=== PATIENT | female | born 1955 | race Caucasian/White ===

== ENCOUNTER → 2017-11-03 10:16 | Outpatient (CLI) | payer MEDICARE, SELFPAY ==
--- NOTE | 2017-11-03 11:09 | XR_ITS ---
XR DEXA axial skeleton COMPARISON: None HISTORY: Patient is postmenopausal TECHNIQUE: DEXA scanning lumbar spine and hips FINDINGS: Lumbar spine: The average BMD L1-L4 is 1.2-3 times per centimeter squared with T score of 0.4 Hips: The total BMD right hip is 0.72 g/sq cm with a T score -1.8 in the right femoral neck is 0.712 g/sq cm the T score of -2.3. The total BMD left hip is 0.839 g or centimeter square the T score -1.3. The left femoral neck is 0.760 g/sq cm the T score -2.0 IMPRESSION: Normal value lumbar spine ,osteopenia range for both hips, consider follow-up study in 2 years
== END ==
PROVIDERS: Family Provider Internal Medicine Adolescent Medicine; PCP Internal Medicine Adolescent Medicine; Visit Provider Internal Medicine Adolescent Medicine
DX: Z13.820 Encounter for screening for osteoporosis (principal); Z78.0 Asymptomatic menopausal state
CPT/HCPCS: 77080

== ENCOUNTER → 2018-03-16 09:17 | Outpatient (CLI) | payer MEDICARE, SELFPAY ==
[2018-03-16 13:52] LABS: Hemoglobin A1C 5.7 % (0.0-7.0)
== END ==
PROVIDERS: PCP Internal Medicine Adolescent Medicine; Visit Provider Internal Medicine Adolescent Medicine
DX: E11.9 Type 2 diabetes mellitus without complications (principal)
CPT/HCPCS: 36415; 83036

== ENCOUNTER → 2018-06-19 09:48 | Outpatient (CLI) | payer MEDICARE, SELFPAY ==
[2018-06-19 13:35] LABS: Hemoglobin A1C 5.6 % (0.0-7.0)
[2018-06-19 13:53] LABS: Alanine Aminotransferase 27 U/L (12-78); Albumin Level 4.1 gm/dL (3.4-5.0); Albumin/Globulin Ratio 1.2 (1.1-1.8); Alkaline Phosphatase 118 U/L (46-116); Anion Gap 18.1 mEq/L (5-15); Aspartate Amino Transferase 14 U/L (15-37); Bilirubin,Total 0.5 mg/dL (0.2-1.0); Blood Urea Nitrogen 9 mg/dL (7-18); Calcium 9.3 mg/dL (8.5-10.1); Carbon Dioxide 23 mmol/L (21.0-32.0); Chloride 104 mmol/L (98-107); Chol/HDL Ratio 3.8 (1-3.5); Cholesterol 134 mg/dL (140-200); Creatinine,Serum 1.24 mg/dL (0.55-1.02); Estimated Glomerular Filt Rate 44 ml/min (>60); GFR (African American) 53 ML/MIN (>60); Globulin 3.3 gm/dl (1.3-3.2); Glucose 93 mg/dL (74-106); HDL Cholesterol 35 mg/dL (29-89); LDL Cholesterol 46 mg/dL (0-130); Potassium 4.1 mmoL/L (3.5-5.1); Sodium 141 mmol/L (136-145); Total Protein,Serum 7.4 gm/dL (6.4-8.2); Triglycerides 264 mg/dL (30-200); VLDL Cholesterol 53 mg/dL (0-40)
== END ==
PROVIDERS: PCP Internal Medicine Adolescent Medicine; Visit Provider Internal Medicine Adolescent Medicine
DX: E11.9 Type 2 diabetes mellitus without complications (principal); Z79.84 Long term (current) use of oral hypoglycemic drugs
CPT/HCPCS: 36415; 80053; 80061; 83036

== ENCOUNTER → 2018-09-17 07:04 | Outpatient (CLI) | payer MEDICARE, SELFPAY ==
[2018-09-17 14:33] LABS: Hemoglobin A1C 5.5 % (0.0-7.0)
[2018-09-17 15:53] LABS: Alanine Aminotransferase 26 U/L (12-78); Albumin Level 3.9 gm/dL (3.4-5.0); Albumin/Globulin Ratio 1.3 (1.1-1.8); Alkaline Phosphatase 129 U/L (46-116); Aspartate Amino Transferase 15 U/L (15-37); Bilirubin,Total 0.6 mg/dL (0.2-1.0); Blood Urea Nitrogen 12 mg/dL (7-18); Calcium 9.1 mg/dL (8.5-10.1); Carbon Dioxide 24 mmol/L (21.0-32.0); Chloride 106 mmol/L (98-107); Chol/HDL Ratio 3.1 (1-3.5); Cholesterol 93 mg/dL (140-200); Creatinine,Serum 1.18 mg/dL (0.55-1.02); Estimated Glomerular Filt Rate 46 ml/min (>60); GFR (African American) 56 ML/MIN (>60); Globulin 2.9 gm/dl (1.3-3.2); Glucose 85 mg/dL (74-106); HDL Cholesterol 30 mg/dL (29-89); LDL Cholesterol 22 mg/dL (0-130); Sodium 142 mmol/L (136-145); Total Protein,Serum 6.8 gm/dL (6.4-8.2); Triglycerides 207 mg/dL (30-200); VLDL Cholesterol 41 mg/dL (0-40)
== END ==
PROVIDERS: PCP Internal Medicine Adolescent Medicine; Visit Provider Internal Medicine Adolescent Medicine
DX: E11.9 Type 2 diabetes mellitus without complications (principal); Z79.84 Long term (current) use of oral hypoglycemic drugs
CPT/HCPCS: 36415; 80053; 80061; 83036

== ENCOUNTER → 2019-01-22 09:04 | Outpatient (CLI) | payer MEDICARE, SELFPAY ==
--- NOTE | 2019-01-22 09:07 | MM_ITS ---
PROCEDURE: MM DIG SCREENING MAMM BI W/CAD Patient Age:63Y CLINICAL INDICATION: SCREENING no hormones, no new complaints. Noncontributory family history. Previous excisional benign biopsy right and left breast 12-1 o'clock left breast and lateral areola right breast COMPARISON: R2 Mammography Digitized Film from 03/07/2006 DMSB DIG MAMM-SCREEN CHATO from 03/18/2014 DMSB DIG MAMM-SCREEN CHATO from 04/15/2015 DMSB DIG MAMM-SCREEN CHATO W/CAD from 12/16/2016 TECHNIQUE: Standard CC and MLO images were obtained. R2 CAD reviewed. FINDINGS: Moderate breast density. No discrete or significant new findings of concern when compared to prior exams. No dominant or suspicious new mass. No suspicious calcificationsStable mild asymmetry he he Right breast but minimal density at the deep breast 12 o'clock similar to previous studies and dissipates on axillary CC view Left breast but no new areas of concern but follow-up 1 year recommended. IMPRESSION: Stable mammogram with no new findings of significant concern. Bilateral follow-up in 1 year recommended Moderately dense breast but stable mild asymmetry BI-RAD Category: 2 Benign Finding(s) FOLLOW-UP: 1YR 1 Year Follow-up (A letter has been sent to the patient regarding results of the study.) Dictated by: Mateo Frey MD 01/25/2019 09:08 Electronically signed by Mateo Frey MD in [place] 01/25/2019 09:08
== END ==
PROVIDERS: PCP Internal Medicine Adolescent Medicine; Visit Provider Internal Medicine Adolescent Medicine
DX: Z12.31 Encounter for screening mammogram for malignant neoplasm of breast (principal)
CPT/HCPCS: 77067

== ENCOUNTER → 2020-01-17 10:18 | Outpatient (CLI) | payer MEDICARE, OTHER, SELFPAY ==
[2020-01-17 13:58] LABS: Chloride 110 mmol/L (98-107)
[2020-01-17 13:59] LABS: Potassium 4.3 mmoL/L (3.5-5.1); Sodium 141 mmol/L (136-145)
[2020-01-17 14:01] LABS: Alanine Aminotransferase 13 U/L (12-78); Alkaline Phosphatase 95 U/L (38-126); Anion Gap 9.3 mEq/L (5-15); Aspartate Amino Transferase 22 U/L (14-36); Bilirubin,Total 0.7 mg/dl (0.2-1.3); Blood Urea Nitrogen 13 mg/dl (7-17); Carbon Dioxide 26 mmol/L (22.0-30.0); Cholesterol 105 mg/dl (140-200); Estimated Glomerular Filt Rate 50 ml/min (>60); GFR (African American) 60 ML/MIN (>60); Triglycerides 229 mg/dl (30-150); VLDL Cholesterol 46 mg/dL (0-40)
[2020-01-17 14:02] LABS: Albumin Level 4.1 g/dl (3.5-5.0); Albumin/Globulin Ratio 1.5 (1.1-1.8); Calcium 9.8 mg/dl (8.4-10.2); Chol/HDL Ratio 3.3 (1-3.5); Globulin 2.7 g/dL (1.3-3.2); Glucose 84 mg/dl (74-100); HDL Cholesterol 32 mg/dl (40-60); Total Protein,Serum 6.8 g/dl (6.3-8.2)
[2020-01-17 14:11] LABS: Basophils # 0.1 K/mm3 (0-0.2); Basophils % 0.8 % (0.1-2.0); Eosinophils # 0.5 K/mm3 (0.0-0.4); Eosinophils % 6.1 % (0.1-12.0); Hematocrit 41.1 % (37.0-47.0); Hemoglobin 13.5 g/dL (12.2-16.2); Lymphocytes # 2.6 K/mm3 (0.7-4.5); Lymphocytes % 31.3 % (10-50); Mean Corpuscular HGB Conc 32.8 g/dL (31.8-35.4); Mean Corpuscular Hemoglobin 31.2 pg (27.0-31.2); Mean Corpuscular Volume 95.2 fl (81-99); Mean Platelet Volume 8.2 fl (7.4-10.4); Monocytes # 0.3 K/mm3 (0.1-1.0); Monocytes % 3.7 % (1.7-9.3); Neutrophils # 4.8 K/mm3 (1.8-7.8); Neutrophils % 58.1 % (37.0-80.0); Platelet Count 317 K/mm3 (142-424); Red Blood Count 4.32 M/mm3 (4.20-5.40); Red Cell Distribution Width 12.9 % (11.5-17.5); White Blood Count 8.2 K/mm3 (4.8-10.8)
[2020-01-17 14:13] LABS: Direct LDL Cholesterol 43.21 mg/dL (100-129)
[2020-01-17 14:36] LABS: Hemoglobin A1C 5.7 % (4.0-6.0)
== END ==
PROVIDERS: Visit Provider Nurse Practitioner Family
DX: Z00.00 Encounter for general adult medical examination without abnormal findings (principal); K50.111 Crohn's disease of large intestine with rectal bleeding; E78.5 Hyperlipidemia, unspecified; I10 Essential (primary) hypertension; E11.9 Type 2 diabetes mellitus without complications
CPT/HCPCS: 36415; 80053; 80061; 83036; 85025

== ENCOUNTER → 2020-01-28 10:43 | Outpatient (CLI) | payer MEDICARE, OTHER, SELFPAY ==
--- NOTE | 2020-01-28 10:46 | MM_ITS ---
PROCEDURE: MM DIG SCREENING MAMM BI W/CAD Digital Breast Tomosynthesis Included CLINICAL INDICATION: SCREENING There is no personal or family history of breast cancer. There have been previous biopsies on each breast for benign disease. COMPARISON: MG DMSB DIG MAMM-SCREEN CHATO from 04/15/2015 MG DMSB DIG MAMM-SCREEN CHATO W/CAD from 12/16/2016 MG MM DIG SCREENING MAMM BI W/CAD from 01/22/2019 TECHNIQUE: Standard CC and MLO images and 3D Tomosynthesis was obtained. R2 CAD reviewed. FINDINGS: Mild to moderate fibroglandular densities are seen in the central portions of both breast. There is a mole marker near the nipple right breast. Both nipples are partially inverted and this was noted previously. There is benign-appearing calcification right breast. There is faint arterial calcification in each breast. There is a stable benign-appearing asymmetric density central portion right breast. There is no suspicious lesion and no suspicious microcalcifications. IMPRESSION: Mild to moderate breast density with no suspicious lesions seen BI-RAD Category: 2 Benign Finding(s) FOLLOW-UP: 1YR 1 Year Follow-up (A letter has been sent to the patient regarding results of the study.) Dictated by: Dr. Bharat Lainez MD 01/30/2020 12:33 Dr. Bharat Lainez MD in [place] 01/30/2020 12:33
== END ==
PROVIDERS: PCP Internal Medicine Adolescent Medicine; Visit Provider Nurse Practitioner Family
DX: Z12.31 Encounter for screening mammogram for malignant neoplasm of breast (principal)
CPT/HCPCS: 77063; 77067

== ENCOUNTER 2020-02-03 14:00 | Outpatient (RCR) | payer MEDICARE, OTHER, SELFPAY ==
--- NOTE | 2020-01-21 12:25 | HMH.PTOPEV ---
PT Outpatient Evaluation Rehab PT Outpatient Evaluation Start: 01/21/20 11:38 Freq: Status: Active Protocol: Document 01/21/20 11:38 NEELA (Rec: 01/21/20 12:03 [email or web address] [id number]) Electronically Signed By Roman Randall PT 01/21/20 11:38 Outpatient Therapy Subjective History Subjective History Pt. is a 64 year old female who presents to Outpatient PT clinic w/ complaints of acute and constant RLE medial knee P! of traumatic onset since . Pt. reports I was sorting out calves, turned and twisted on my R leg and heard/ felt a pop. Pt. also reports symptoms that include numbness /tingling into her toes(RLE). Pt. denies RLE hip/LB symptoms to this date. Pt. denies having diagnostic imaging nor injections for current pathology and has reported no symptom relief w/ OTC anti- inflammatories. Pt. reports some symptom relief w/ locking her knee into extension, reports symptoms are the worse at night. Current medications include Tylenol. PMH includes RLE knee ACL repair, Chron's Disease, Diabetes, Hysterectomy, Tubal Ligation, Cystectomies x 2, and an Appendectomy. Chief Complaint Pain,Swelling Symptom Type Sharp,Tingling Symptoms Relieved By Rest/Positioning Symptoms Aggravated By Supine,Sitting,Standing, Physical Activity,Twisting, Walking Prior Functional Limitations None Current Functional Limitations Housework,Dressing,Sleeping, Standing,Sitting,Squatting, Recreation Activity,Walking, Stairs,Balance,Bending/ Stooping Symptom Description Constant and Continuous Level of pain today (0-10) 6 Pain scale - at its best (0-10) 6 Pain scale - at its worst (0-10) 10 Hip/Knee Eval Gait Observation General Gait Pattern Observation Antalgic Gait,Decrease Weight Bear (R),Decrease Stride Lngth
== END 2020-02-27 15:34 | disposition home or self-care (01) ==
LOC: PT.CARL 14:00
PROVIDERS: PCP Internal Medicine Adolescent Medicine; Visit Provider Nurse Practitioner Family
DX: M25.561 Pain in right knee (principal)
CPT/HCPCS: 97010; 97014; 97035; 97110; 97163; G0283

== ENCOUNTER → 2020-02-13 13:11 | Outpatient (CLI) | payer MEDICARE, OTHER, SELFPAY ==
--- NOTE | 2020-02-13 13:14 | MR_ITS ---
PROCEDURE: MR KNEE RT WO CON CLINICAL INDICATION: RIGHT MEDIAL KNEE PAIN, SWELLING, INSTABILITY RIGHT MEDIAL KNEE PAIN, INSTABILITY, NUMBNESS IN TOES, SYMPTOMNS X1 MONTH. PREVIOUS ACL REPAIR. COMPARISON: No exams were available for comparison TECHNIQUE: Routine multiplanar multi echo sequences are performed without gadolinium enhancement. FINDINGS: Cruciate ligaments and lateral collateral ligaments appear intact. Some contour irregularity the ACL however, a complete tear does not appear to be present. There is edematous appearance the medial collateral ligament with slight increased T2 signal involving the medial femoral condyle and medial tibial plateau medially. No meniscal tear is evident. The patellar tendon and quadriceps tendon appears intact. The patellar cartilage is thinned with some increased T2 signal of the posterior surface of the patella. There is a small knee joint effusion. There are mild osteoarthritic changes of the knee with some minimal subarticular decreased T1 signal in the lateral femoral condyle. IMPRESSION: 1. There is some contour deformity of the mid aspect of the ACL. This is of questionable clinical significance. A complete tear is not felt to be present. History is given of prior ACL repair. Typical findings of ACL reconstruction are not present. 2. Sprain of the MCL with some adjacent bone marrow edema of the medial femoral condyle and medial tibial plateau. 3. Severe thinning of the patellar cartilage consistent with chondromalacia patella versus osteoarthritis with some bone marrow edema along the superior and posterior aspect of the patella. 4. Small knee joint effusion. Dictated by: Leander Garcia MD 02/14/2020 14:39 Leander Garcia MD in [place] 02/14/2020 14:39
== END ==
PROVIDERS: PCP Internal Medicine Adolescent Medicine; Visit Provider Internal Medicine Adolescent Medicine
DX: M25.561 Pain in right knee (principal); M25.461 Effusion, right knee; M25.361 Other instability, right knee
CPT/HCPCS: 73721

== ENCOUNTER 2020-04-13 09:28 | Emergency (ER) | payer MEDICARE, OTHER, SELFPAY ==
[2020-04-13 10:04] VITALS: BP 108/57; PULSE 59; RESP 16; TEMP 36.7; O2SAT 97; BMI 26.1
--- NOTE | 2020-04-13 10:13 | HMH.EDUTC ---
[facility] – [place] Disposition Clinical Impression: Exposure to COVID-19 virus Disposition: Home, Self-Care Condition on Discharge: Good Instructions: Preventing the Spread of Coronavirus Discharge Instructions Additional Instructions: Drink plenty of fluids. Take tylenol for pain or fever. Return if you begin to have difficulty breathing. Follow up with your regular doctor. GO TO THE ER FOR ANY WORSENING SYMPTOMS Referrals: Efrain Velarde MD [Primary Care Provider] - Time of Disposition: 10:15 Medical Decision Making - Medical Records Medical records reviewed: No: I reviewed the patient's medical records. - Arik Inquiry Pt receiving controlled substance: No Vital Signs: 04/13/20 10:04 04/13/20 10:21 Temperature 98.0 F 98.0 F Temperature Source Oral Pulse Rate 59 L Pulse Rate [Left] 59 L Respiratory Rate 16 16 Blood Pressure 108/57 L Blood Pressure [Right Arm] 108/57 L Blood Pressure Mean [Right Arm] 74 Blood Pressure Source [Right Arm] Automatic Cuff Blood Pressure Position [Right Arm] Sitting 02 Sat by Pulse Oximetry 97 Oxygen Delivery Method Room Air Orders (Tests/Meds): ORDERS Category Date Time Status Covid-19 Nasal PCR Sendout P&C Routine Lab 04/13/20 09:52 Received [facility] – [place], [place] HPI - General Stated complaint: covid exposure Time Seen by Provider: 04/13/20 10:14 Mode of Arrival: Ambulatory Source of Information: Patient Limitations: No Limitations Description of Symptoms (Recalled from Triage Doc. by RN): covid test exposure no symptoms HEENT Symptoms (Recalled from RN notes): No Resp Symptoms (Recalled from RN notes): No Skin Symptoms (Recalled from RN notes): No MS Symptoms (Recalled from RN notes): No Functional Status (Recalled from RN notes): wnl - History of Present Illness Provider Complaint: she states that her son has covid and she has been around him for eun. She denies any symptoms so far. - Related Data Allergies Allergy/AdvReac Type Severity Reaction Status Date / Time codeine Allergy Intermediate Verified 04/13/20 10:11 Penicillins Allergy Intermediate Verified 04/13/20 10:11 tetracycline Allergy Intermediate Verified 04/13/20 10:11 - Worker's Comp Is this a Worker's Comp case?: No Is this an [facility] Worker's Comp?: No Is this a [facility] Worker's Comp?: No [facility] History - Hepatitis A Screen Drug use history?: No High risk sexual behaviors?: No History of sexually transmitted infection?: No Currently employed?: No Childcare worker?: No Do you have indoor plumbing?: Yes Do you have electricity?: Yes Attestation statement:: This patient has been screened for Hepatitis A risk factors. I have reviewed the patient's past medical history: Yes ROS Obtained: Yes All systems reviewed & no additional complaints - Constitutional Constitutional: Reports system reviewed and no additional complaints, except as docu - Eyes Eyes: Reports system reviewed and no additional complaints, except as docu - ENT Ears, Nose, Mouth, and Throat: Reports system reviewed and no additional complaints, except as docu - Cardiovascular Cardiovascular: Reports system reviewed and no additional complaints, except as docu - Respiratory Respiratory: Yes system reviewed and no additional complaints, except as docu - Gastrointestinal Gastrointestingal: Reports: system reviewed and no additional complaints, except as docu Physical Exam - General General appearance: alert, in no apparent distress - Head Head exam: atraumatic, normocephalic, normal inspection - Eye Eye exam: Present: normal appearance, PERRL, EOMI - ENT ENT exam: Present: normal exam, normal oropharynx, mucous membranes moist, TM's normal bilaterally, normal external ear exam - Neck Neck exam: Present: normal inspection, full ROM, trachea midline. Absent: meningismus, lymphadenopathy - Chest Chest inspection: Present: normal inspection, symmetric chest wall rise. Absent: tende
[2020-04-13 10:21] VITALS: BP 108/57; PULSE 59; RESP 16; TEMP 36.7; O2SAT 97
[2020-04-14 07:52] LABS: Covid-19 Nasal PCR Sendout P&C NEGATIVE
== END 2020-04-13 10:22 | disposition home or self-care (01) ==
PROVIDERS: Emergency Provider Nurse Practitioner Family; PCP Internal Medicine Adolescent Medicine
DX: Z20.828 Contact with and (suspected) exposure to other viral communicable diseases (principal); Z88.0 Allergy status to penicillin
CPT/HCPCS: G0463; 99201; U0004

== ENCOUNTER 2020-04-15 15:00 | Outpatient (RCR) | payer MEDICARE, OTHER, SELFPAY | END 2020-04-22 15:47 | disposition home or self-care (01) | LOC: PT.CARL 15:00 | PROVIDERS: PCP Internal Medicine Adolescent Medicine; Visit Provider Orthopaedic Surgery Adult Reconstructive Orthopaedic Surgery | DX: M25.561 Pain in right knee (principal); M17.11 Unilateral primary osteoarthritis, right knee; M54.5 Low back pain | CPT/HCPCS: 97010; 97012; 97014; 97110; 97112; 97140; 97163; G0283 ==

== ENCOUNTER → 2020-09-04 13:41 | Outpatient (CLI) | payer MEDICARE, OTHER, SELFPAY ==
[2020-09-04 13:49] LABS: Basophils % 0.5 % (0.1-2.0); Eosinophils # 0.4 K/mm3 (0.0-0.4); Eosinophils % 4.3 % (0.1-12.0); Hematocrit 37.4 % (37.0-47.0); Hemoglobin 12.8 g/dL (12.2-16.2); Lymphocytes # 2.6 K/mm3 (0.7-4.5); Lymphocytes % 29.8 % (10-50); Mean Corpuscular HGB Conc 34.3 g/dL (31.8-35.4); Mean Corpuscular Hemoglobin 31.3 pg (27.0-31.2); Mean Corpuscular Volume 91.5 fl (81-99); Mean Platelet Volume 8.7 fl (7.4-10.4); Monocytes # 0.4 K/mm3 (0.1-1.0); Monocytes % 4.6 % (1.7-9.3); Neutrophils # 5.2 K/mm3 (1.8-7.8); Neutrophils % 60.8 % (37.0-80.0); Platelet Count 262 K/mm3 (142-424); Red Blood Count 4.09 M/mm3 (4.20-5.40); Red Cell Distribution Width 13.1 % (11.5-17.5); White Blood Count 8.6 K/mm3 (4.8-10.8)
[2020-09-04 14:27] LABS: Chloride 109 mmol/L (98-107); Sodium 138 mmol/L (136-145)
[2020-09-04 14:28] LABS: Potassium 3.7 mmoL/L (3.5-5.1)
[2020-09-04 14:30] LABS: Alanine Aminotransferase 17 U/L (12-78); Albumin Level 4.3 g/dl (3.5-5.0); Alkaline Phosphatase 97 U/L (38-126); Anion Gap 12.7 mEq/L (5-15); Aspartate Amino Transferase 24 U/L (14-36); Bilirubin,Total 0.5 mg/dl (0.2-1.3); Blood Urea Nitrogen 11 mg/dl (7-17); Carbon Dioxide 20 mmol/L (22.0-30.0); Estimated Glomerular Filt Rate 50 ml/min (>60); GFR (African American) 60 ML/MIN (>60)
[2020-09-04 14:31] LABS: Albumin/Globulin Ratio 1.9 (1.1-1.8); Calcium 9.1 mg/dl (8.4-10.2); Chol/HDL Ratio 3.6 (1-3.5); Cholesterol 103 mg/dl (140-200); Globulin 2.3 g/dL (1.3-3.2); Glucose 118 mg/dl (74-100); HDL Cholesterol 29 mg/dl (40-60); Total Protein,Serum 6.6 g/dl (6.3-8.2); Triglycerides 262 mg/dl (30-150); VLDL Cholesterol 52 mg/dL (0-40)
[2020-09-04 14:42] LABS: Direct LDL Cholesterol 46.32 mg/dL (100-129)
== END ==
PROVIDERS: Visit Provider Nurse Practitioner Family
DX: K50.111 Crohn's disease of large intestine with rectal bleeding (principal); I10 Essential (primary) hypertension; E78.5 Hyperlipidemia, unspecified
CPT/HCPCS: 80053; 80061; 85025

== ENCOUNTER → 2021-01-26 07:01 | Outpatient (CLI) | payer MEDICARE, OTHER, SELFPAY ==
[2021-01-26 16:29] LABS: Alanine Aminotransferase 22 U/L (12-78); Albumin Level 3.9 g/dl (3.5-5.0); Albumin/Globulin Ratio 1.5 (1.1-1.8); Alkaline Phosphatase 100 U/L (38-126); Aspartate Amino Transferase 26 U/L (14-36); Bilirubin,Total 0.7 mg/dl (0.2-1.3); Blood Urea Nitrogen 9 mg/dl (7-17); Calcium 9.4 mg/dl (8.4-10.2); Carbon Dioxide 20 mmol/L (22.0-30.0); Chloride 112 mmol/L (98-107); Chol/HDL Ratio 4.1 (1-3.5); Cholesterol 128 mg/dl (140-200); Estimated Glomerular Filt Rate 55 ml/min (>60); GFR (African American) 67 ML/MIN (>60); Globulin 2.6 g/dL (1.3-3.2); Glucose 103 mg/dl (74-100); HDL Cholesterol 31 mg/dl (40-60); Sodium 140 mmol/L (136-145); Total Protein,Serum 6.5 g/dl (6.3-8.2); Triglycerides 263 mg/dl (30-150); VLDL Cholesterol 53 mg/dL (0-40)
[2021-01-26 16:30] LABS: Anion Gap 12.5 mEq/L (5-15); Potassium 4.5 mmoL/L (3.5-5.1)
[2021-01-26 16:42] LABS: Direct LDL Cholesterol 52.95 mg/dL (100-129)
[2021-01-26 18:26] LABS: Hemoglobin A1C 7.1 % (4.0-6.0)
== END ==
PROVIDERS: Visit Provider Nurse Practitioner Family
DX: Z00.00 Encounter for general adult medical examination without abnormal findings (principal); I10 Essential (primary) hypertension; E78.5 Hyperlipidemia, unspecified; E11.9 Type 2 diabetes mellitus without complications
CPT/HCPCS: 36415; 80053; 80061; 83036

== ENCOUNTER → 2021-02-10 09:41 | Outpatient (CLI) | payer MEDICARE, OTHER, SELFPAY ==
--- NOTE | 2021-02-10 09:44 | MM_ITS ---
PROCEDURE INFORMATION: Exam: MG Bilateral Screening 3D Mammography Exam date and time: 02/10/2021 9:44 AM Age: 65 years old Clinical indication: Screening mammogram TECHNIQUE: Imaging protocol: Bilateral screening tomosynthesis and 2D mammography including computer-aided detection (CAD) when performed. COMPARISON: 1. MG MM DIG SCREENING MAMM BI W/CAD 01/28/2020 10:51 AM 2. MG MM DIG SCREENING MAMM BI W/CAD 01/22/2019 9:41 AM 3. MG DMSB DIG MAMM-SCREEN CHATO W/CAD 12/16/2016 9:32 AM 4. MG DMSB DIG MAMM-SCREEN CHATO 04/15/2015 5:21 PM FINDINGS: MAMMOGRAPHY: Breast composition: The breast tissue is heterogeneously dense, which may obscure small masses. Mass: Stable benign-appearing subcentimeter nodules are present in the bilateral breasts. No new or morphologically suspicious nodule has developed to suggest malignancy. Architectural distortion: No new or suspicious architectural distortion. Calcifications: No new or suspicious calcifications are present Asymmetric density: No new or suspicious asymmetric density is present Skin thickening: None. Axillary adenopathy: None. IMPRESSION: No mammographic evidence of malignancy. Recommend annual screening mammography unless otherwise clinically indicated. ASSESSMENT: BI-RADS category 2: Benign
== END ==
PROVIDERS: PCP Internal Medicine Adolescent Medicine; Visit Provider Internal Medicine Adolescent Medicine
DX: Z12.31 Encounter for screening mammogram for malignant neoplasm of breast (principal)
CPT/HCPCS: 77063; 77067

== ENCOUNTER → 2021-02-12 14:52 | Outpatient (CLI) | payer MEDICARE, OTHER, SELFPAY | PROVIDERS: PCP Internal Medicine Adolescent Medicine; Visit Provider Nurse Practitioner Family | DX: E11.9 Type 2 diabetes mellitus without complications (principal); Z71.3 Dietary counseling and surveillance | CPT/HCPCS: 97802 ==

== ENCOUNTER → 2021-02-23 11:13 | Outpatient (POV) | payer MEDICARE, OTHER, SELFPAY | PROVIDERS: Visit Provider Dermatology | DX: Z00.00 Encounter for general adult medical examination without abnormal findings (principal) ==

== ENCOUNTER → 2021-10-20 14:52 | Outpatient (CLI) | payer MEDICARE, OTHER, SELFPAY ==
--- NOTE | 2021-10-20 14:56 | MR_ITS ---
FINAL REPORT CLINICAL HISTORY: CERVICALGIA bilateral neck pain pain worse on left side left arm pain,numbness, and tingling headaches FINDINGS: Multiplanar MR imaging of the cervical spine was performed without contrast. On the sagittal T2-weighted images, disc degeneration is seen throughout. There are endplate changes at C5-6 and C6-7. There is mild anterolisthesis of C4 on 5. There is no evidence of fracture. The cervical spinal cord has an unremarkable appearance without evidence of mass, edema or syrinx. No significant canal stenosis is identified. The cervicomedullary junction is normal. C2-3: There is no significant canal stenosis or neural foraminal narrowing. C3-4: Small central disc protrusion is present. There is no significant canal stenosis or neural foraminal narrowing. C4-5: Small central disc protrusion is present. There is no significant canal stenosis or neural foraminal narrowing. C5-6: Osteophyte complex is present with moderate bilateral neural foraminal narrowing. C6-7: Disc osteophyte complex is present with mild left neural foraminal narrowing. C7-T1: Small central disc protrusion is present. There is no significant canal stenosis or neural foraminal narrowing. IMPRESSION: Multilevel degenerative disc disease as above. Small central disc protrusions at C3-4, C4-5, and C7-T1. Reviewed, Interpreted and Dictated by Rogerio Vides III, MD Transcribed by Vanessa Burk Authenticated and [facility]
== END ==
PROVIDERS: PCP Internal Medicine Adolescent Medicine; Visit Provider Internal Medicine Adolescent Medicine
DX: M54.2 Cervicalgia (principal)
CPT/HCPCS: 72141; 76376

== ENCOUNTER 2021-11-24 07:00 | Outpatient (RCR) | payer MEDICARE, OTHER, SELFPAY ==
--- NOTE | 2021-10-21 09:42 | HMH.PTOPEV ---
PT Outpatient Evaluation Rehab PT Outpatient Evaluation Start: 10/21/21 07:47 Freq: Status: Active Protocol: Document 10/21/21 07:47 [email or web address] (Rec: 10/21/21 09:42 [email or web address] [id number]) Electronically Signed By Roman Randall, PAVAN 10/21/21 07:47 Outpatient Therapy Subjective History Subjective History Pt. is a 65 year old female who presents to [facility] Out[facility] in [place] for the initial evaluation this date( 10/21/21) w/ c/o chronic and constant cervical and LUE P!, numbness/tingling, headaches, and stiffness of insidious onset since June 2021. Pt. reports when she wakes up in the morning her whole arm(LUE) is numb. Pt. denies having numbness/tingling into the RUE . Pt. reports symptoms worsen w/ turning her head while driving, running the sweeper, sleeping. Pt. reports having some symptom relief w/ rest and not moving my head. Pt. denies having any symptom relief w/ prescribed medications. Pt. reports having an MRI yesterday(). Pt. denies having any injections for current complaint. Current medications include Flexiril, Metoprolol, Zinc, Zoloft, and Pepcid. PMH includes Hypertension, borderline diabetic, bowel obstruction surgeries, Cholecystectomy, and a Hysterectomy. Pt. denies history of cancer(self), denies pacemaker, denies latex allergy, reports having a medicational allergy to Tetracycline and Codeine. Chief Complaint Pain,Spasms,Stiff,Paresthesia, Weakness Symptom Type Ache,Sharp,Stabbing,Burning, Numbness,Tingling,Shooting Symptoms Relieved By Rest/Positioning,Heat,Brace/ Support Symptoms Aggravated By Rogers
== END 2021-12-23 09:02 | disposition home or self-care (01) ==
LOC: PT.CARL 07:00
PROVIDERS: PCP Internal Medicine Adolescent Medicine; Visit Provider Internal Medicine Adolescent Medicine
DX: M54.2 Cervicalgia (principal)
CPT/HCPCS: 97010; 97012; 97014; 97110; 97140; 97163; G0283

== ENCOUNTER 2022-03-11 09:38 | Emergency (ER) | payer MEDICARE, OTHER, SELFPAY ==
[2022-03-11 09:51] VITALS: BP 130/67; PULSE 81; RESP 18; TEMP 36.9; O2SAT 99; BMI 26.4
--- NOTE | 2022-03-11 09:51 | HMH.EDGENADL ---
Discharge Plan Disposition Patient Disposition: Home, Self-Care Condition: Good Prescriptions Prescriptions: New hydrocodone-acetaminophen 5-325 mg tablet 1 tab PO Q6H PRN (Reason: pain) Qty: 10 0RF diazepam [Valium] 2 mg tablet 2 mg PO QID PRN (Reason: anxiety) Qty: 10 0RF Referrals Follow up/Referrals: Efrain Velarde MD [Primary Care Provider] - See instructions Activity Restrictions/Add. Instructions Additional Instructions/Restrictions: Apply ice to the affected area as needed for discomfort. Follow-up with your primary care provider this coming Monday for consideration of physical therapy, pain management and/or advanced imaging. Clinical Impressions Clinical Impression: Acute neck pain Instructions Patient Instructions: DI for Neck Pain Discharge ED Provider: Rodney Bernabe Adult HPI General Chief complaint: PAIN Stated complaint: neck pain, no accident Time Seen by Provider: 03/11/22 09:46 History of Present Illness HPI narrative: She presents complaining of left-sided neck discomfort. She has been dealing with this off and on since approximately September of this year and had imaging done at that time demonstrating bulging disks . The pain is worse today. She denies fever to suggest meningitis. She denies chest pain or shortness of air to 6 to suggest ACS. He describes the pain as moderate to severe and worse with movement of head or neck. Related Data Previous Rx's Medication Instructions Recorded diazepam 2 mg tablet (Valium) 2 mg PO QID PRN anxiety #10 tabs 03/11/22 hydrocodone 5 mg-acetaminophen 325 1 tab PO Q6H PRN pain #10 tabs 03/11/22 mg tablet Allergies Allergy/AdvReac Type Severity Reaction Status Date / Time codeine Allergy Intermediate Verified 04/13/20 10:11 Penicillins Allergy Intermediate Verified 04/13/20 10:11 tetracycline Allergy Intermediate Verified 04/13/20 10:11 PFSH PFSH Social History Smoking Status: Smoker, status unknown tobacco type: cigarettes packs per day: 1 second hand exposure: No alcohol intake: never current occupational status: other Travel in the last 8 weeks: None ROS Obtained: Yes All systems reviewed & no additional complaints except as documented Physical Exam General General appearance: alert and other (The patient appears uncomfortable) Head Head exam: atraumatic Eye Eye exam: Present normal appearance, PERRL and EOMI ENT ENT exam: Present normal exam, normal oropharynx, mucous membranes moist, TM's normal bilaterally and normal external ear exam Neck Neck exam: Present other (There is tenderness to the left posterior paracervical muscle area. There is no midline spinous process tenderness. There is no meningismus.) Chest Chest inspection: Present normal inspection and symmetric chest wall rise; Absent tenderness Respiratory Respiratory exam: Present normal lung sounds bilaterally; Absent respiratory distress Cardiovascular Cardiovascular exam: Present regular rate and normal rhythm; Absent JVD Abdominal Exam Abdominal exam: Present soft and normal bowel sounds; Absent distention, tenderness or guarding Extremities Exam Extremities exam: Present normal inspection, full ROM and normal capillary refill; Absent calf tenderness Back Exam Back exam: Present normal inspection; Absent tenderness Neurological Exam Neurological exam: Present alert and oriented X3 Psychiatric Psychiatric exam: Present normal affect and normal mood Skin Skin exam: Present warm, dry, intact and normal color Lymphatic Lymphatic Findings: no adenopathy Medical Decision Making Medical Records Medical records reviewed: Yes I reviewed the patient's medical records. Arik Inquiry Pt receiving controlled substance: Yes Arik was queried for this patient: Yes Risks and benefits of using a controlled substance: were discussed with pt by me Vital Signs: 03/11/22 09:51 03/11/22 10:30
[2022-03-11 10:30] VITALS: BP 102/61; PULSE 71; RESP 16; O2SAT 94
[2022-03-11 13:44] VITALS: BP 141/86; PULSE 74; RESP 14; TEMP 36.8; O2SAT 98
== END 2022-03-11 13:46 | disposition home or self-care (01) ==
PROVIDERS: Emergency Provider Emergency Medicine; PCP Internal Medicine Adolescent Medicine
DX: M54.2 Cervicalgia (principal); Z88.0 Allergy status to penicillin; Z88.1 Allergy status to other antibiotic agents; Z88.6 Allergy status to analgesic agent
CPT/HCPCS: 96374; 96375; 96376; 99284

== ENCOUNTER → 2022-11-11 09:37 | Outpatient (CLI) | payer MEDICARE, OTHER, SELFPAY ==
--- NOTE | 2022-11-11 09:41 | MR_ITS ---
FINAL REPORT TECHNIQUE: Multiplanar MR without contrast CLINICAL HISTORY: POSTERIOR LEFT KNEE PAIN. SWELLING OF LEFT KNNE JOINT injury september COMPARISON: None FINDINGS: Articular cartilage: Grade IV chondromalacia of the patella and moderate degenerative changes of the tibiofemoral joint. Marrow signal: There is scattered subchondral marrow edema that may be degenerative or related to osteoporosis. Joint fluid: Moderate joint effusion with a large De León's cyst. Menisci: Macerated tear of the anterior horn lateral meniscus. Medial meniscus is intact. Ligaments: Unremarkable. IMPRESSION: Grade IV chondromalacia of the patella and moderate tibiofemoral joint degenerative change. Macerated tear anterior horn lateral meniscus. Reviewed, Interpreted and Dictated by Yoon Marquez MD Transcribed by Kaila Singer Authenticated and [facility]
== END ==
PROVIDERS: PCP Internal Medicine Adolescent Medicine; Visit Provider Nurse Practitioner Family
DX: M25.562 Pain in left knee (principal); M25.462 Effusion, left knee
CPT/HCPCS: 73721

== ENCOUNTER → 2023-04-03 09:36 | Outpatient (CLI) | payer MEDICARE, OTHER, SELFPAY ==
--- NOTE | 2023-04-03 10:01 | ECG_ITS ---
APPROVED REPORT Exam: Resting ECG HR:54 bpm ECG Measurements Heart Rate 54 AXES MA 157 P 54 QRSd 82 QRS 27 QT 448 T 55 QTc 435 Conclusion SINUS BRADYCARDIA LOW QRS VOLTAGE IN PRECORDIAL LEADS [QRS DEFLECTION < 1.0 mV IN CHEST LEADS] BORDERLINE ECG UNCONFIRMED REPORT Electronically signed by : Efrain Velarde MD 04/03/2023 14:44:26
[2023-04-03 10:28] LABS: Microscopic, Urine URINE MICROSCOPIC (MICROSCOPIC)
--- NOTE | 2023-04-03 10:57 | XR_ITS ---
FINAL REPORT CLINICAL HISTORY: HTN, preop FINDINGS: 2 views of the chest were obtained . The heart is normal in size. The mediastinum is within normal limits. The lungs are clear. There is no pneumothorax. Osseous structures are unremarkable. IMPRESSION: No acute cardiopulmonary process. Reviewed, Interpreted and Dictated by Matty Hinojosa MD Transcribed by Anna Donnelly Authenticated and [facility]
[2023-04-03 11:01] LABS: Basophils % 0.3 % (0.1-2.0); Eosinophils # 0.4 K/mm3 (0.0-0.4); Eosinophils % 4.3 % (0.1-12.0); Hematocrit 40.4 % (37.0-47.0); Hemoglobin 14.2 g/dL (12.2-16.2); Lymphocytes # 2.1 K/mm3 (0.7-4.5); Lymphocytes % 23.1 % (10-50); Mean Corpuscular HGB Conc 35.1 g/dL (31.8-35.4); Mean Corpuscular Hemoglobin 32.7 pg (27.0-31.2); Mean Corpuscular Volume 93.2 fl (81-99); Mean Platelet Volume 7.2 fl (7.4-10.4); Monocytes # 0.3 K/mm3 (0.1-1.0); Monocytes % 3.6 % (1.7-9.3); Neutrophils # 6.3 K/mm3 (1.8-7.8); Neutrophils % 68.7 % (37.0-80.0); Platelet Count 249 K/mm3 (142-424); Red Blood Count 4.33 M/mm3 (4.20-5.40); Red Cell Distribution Width 13.2 % (11.5-17.5); White Blood Count 9.2 K/mm3 (4.8-10.8)
[2023-04-03 11:06] LABS: Appearance,Urine CLEAR (Clear); Bilirubin,Urine Negative (Negative); Blood, Urine Negative (Negative); Color,Urine YELLOW (Yellow); Glucose,Urine (UA) Negative (Negative); Ketones,Urine Negative (Negative); Leukocyte Esterase,Urine Negative (Negative); Nitrate,Urine Negative (Negative); Protein,Urine Negative (Negative); Urobilinogen,Urine 0.2 EU/dl (0.2)
[2023-04-03 11:26] LABS: Bacteria,Urine Trace /lpf
[2023-04-03 12:13] LABS: Alanine Aminotransferase 19 U/L (12-78); Albumin Level 4.1 g/dl (3.5-5.0); Albumin/Globulin Ratio 1.6 (1.1-1.8); Alkaline Phosphatase 121 U/L (38-126); Anion Gap 8.8 mEq/L (5-15); Aspartate Amino Transferase 24 U/L (14-36); Bilirubin,Total 0.6 mg/dl (0.2-1.3); Blood Urea Nitrogen 11 mg/dl (7-17); Calcium 8.5 mg/dl (8.4-10.2); Carbon Dioxide 22 mmol/L (22.0-30.0); Chloride 109 mmol/L (98-107); Estimated Glomerular Filt Rate 55 ml/min (>60); GFR (African American) 67 ML/MIN (>60); Globulin 2.6 g/dL (1.3-3.2); Glucose 84 mg/dl (74-100); Potassium 3.8 mmoL/L (3.5-5.1); Sodium 136 mmol/L (136-145); Total Protein,Serum 6.7 g/dl (6.3-8.2)
== END ==
PROVIDERS: PCP Internal Medicine Adolescent Medicine; Visit Provider Orthopaedic Surgery Adult Reconstructive Orthopaedic Surgery
DX: Z01.818 Encounter for other preprocedural examination (principal)
CPT/HCPCS: 36415; 71046; 80053; 81001; 85025; 93005

== ENCOUNTER 2023-06-06 09:00 | Outpatient (RCR) | payer MEDICARE, OTHER, SELFPAY | END 2023-06-27 11:15 | disposition home or self-care (01) | LOC: PT 09:00 | PROVIDERS: PCP Internal Medicine Adolescent Medicine; Visit Provider Orthopaedic Surgery Adult Reconstructive Orthopaedic Surgery | DX: M25.562 Pain in left knee (principal); S83.242S Other tear of medial meniscus, current injury, left knee, sequela | CPT/HCPCS: 97010; 97014; 97110; 97112; 97116; 97140; 97163; 97530; G0283 ==

== ENCOUNTER 2023-09-29 06:55 | Outpatient (CLI) | payer MEDICARE, OTHER, SELFPAY ==
--- NOTE | 2023-09-29 06:58 | MM_ITS ---
PROCEDURE INFORMATION: Exam: MG Bilateral Screening 3D Mammography Exam date and time: 09/29/2023 7:54 AM Age: 67 years old Clinical indication: Screening examination TECHNIQUE: Imaging protocol: Bilateral Screening tomosynthesis and 2D mammography including computer-aided detection (CAD) when performed. COMPARISON: 1. MG MM DIG SCREENING MAMM BI W/CAD 02/10/2021 10:15 AM 2. MG MM DIG SCREENING MAMM BI W/CAD 01/28/2020 10:51 AM FINDINGS: MAMMOGRAPHY: Breast composition: The breasts are heterogeneously dense, which may obscure small masses. Mass: None. Architectural distortion: None. Calcifications: No suspicious calcifications. Asymmetric density: None. Skin thickening: None. Axillary adenopathy: None. IMPRESSION: No mammographic evidence of malignancy. Annual screening is recommended unless otherwise clinically indicated. ASSESSMENT: BI-RADS Category 1: Negative
--- NOTE | 2023-09-29 06:58 | CT_ITS ---
FINAL REPORT TECHNIQUE: Axial images were obtained from the lung apex to the mid abdomen by computed tomography. This study was performed with techniques to keep radiation doses as low as reasonably achievable (ALARA). Individualized dose reduction techniques using automated exposure control or adjustment of mA and/or kV according to the patient's size were employed. CLINICAL HISTORY: TOBACCO DEPENDENCE CURRENT SMOKER 1PPD X20+ YEARS FINDINGS: CHEST CT LOW DOSE CTDI vol (mGy): 2.90 DLP (mGy-cm): 110.46 There is mild coronary artery calcification. 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 There is no axillary adenopathy. There is no hilar or mediastinal adenopathy. The heart is normal in size. There is no pericardial or pleural effusion. Lung window images demonstrate no suspicious infiltrate or nodule. Note is made of mild pulmonary scarring. Limited images of the upper abdomen are unremarkable. IMPRESSION: Lung RADS category 1. Recommend 12 month follow-up low-dose chest CT. Reviewed, Interpreted and Dictated by Rogerio Vides III, MD Transcribed by Vanessa Burk Authenticated and [facility]
== END 2023-09-29 23:59 | disposition home or self-care (01) ==
LOC: RAD 06:55
PROVIDERS: PCP Internal Medicine Adolescent Medicine; Visit Provider Nurse Practitioner Family
DX: F17.210 Nicotine dependence, cigarettes, uncomplicated; Z12.31 Encounter for screening mammogram for malignant neoplasm of breast
CPT/HCPCS: 71271; 77063; 77067

== ENCOUNTER 2023-10-31 09:47 | Emergency (ER) | payer MEDICARE, OTHER, SELFPAY ==
[2023-10-31 10:05] VITALS: BP 107/41; PULSE 58; RESP 20; TEMP 36.6; O2SAT 100; BMI 26.5
--- NOTE | 2023-10-31 10:22 | EXP.UTC ---
Discharge Plan Disposition Patient Disposition: Home, Self-Care Condition: Good Prescriptions Prescriptions: New methylprednisolone [Medrol (Vu)] 4 mg tablets,dose pack See Rx Instructions .Route .COMPLEX 6 Days Qty: 21 0RF Rx Instructions: taper pack; No Action atorvastatin 20 mg tablet 20 mg PO DAILY famotidine 20 mg tablet 20 mg PO DAILY sertraline 25 mg tablet 25 mg PO DAILY metoprolol tartrate 25 mg tablet 25 mg PO DAILY [place] 3 Fish Oil 684-1,200 mg Capsule,Delayed Release(Dr/Ec) 1 cap PO DAILY Referrals Follow up/Referrals: Efrain Velarde MD [Primary Care Provider] - See instructions Activity Restrictions/Add. Instructions Additional Instructions/Restrictions: Start oral steriod pack tomorrow Oatmeal bathes may help with itching and dry the rash Over the counter Benadryl may help with itching Over the counter Calamine lotion may help to dry the rash Return if needed Straight to ER if any life threatening symptoms Clinical Impressions Clinical Impression: Poison yanick dermatitis Instructions Patient Instructions: Poison [place], Poison [place], Poison [place] Discharge ED Provider: Malaika Vargas [facility] General Stated complaint: posion yanick Mode of Arrival: Ambulatory Source of Information: Patient Limitations: No Limitations Time Seen by Provider: 10/31/23 10:23 Description of Symptoms (Recalled from Triage Doc. by RN): PATIENT C/O POISON YANICK RASH TO BACK, SHOULDERS, NECK, FACE, ABODMEN, LEGS AND ARMS X 2 DAYS HEENT Symptoms (Recalled from RN notes): No Resp Symptoms (Recalled from RN notes): No Skin Symptoms (Recalled from RN notes): Yes MS Symptoms (Recalled from RN notes): No Functional Status (Recalled from RN notes): WNL History of Present Illness Provider Complaint: Patient states that she got into some poison yanick and now she is breaking out in rash States that she is breaking out on her arms, legs, neck, chest and face for the last couple of days and it is getting worse so today when it was still bothering her she came in to get checked and get a steriod shot to help Related Data Home Medications Medication Instructions Recorded Confirmed atorvastatin 20 mg tablet 20 mg PO DAILY 10/31/23 10/31/23 famotidine 20 mg tablet 20 mg PO DAILY 10/31/23 10/31/23 metoprolol tartrate 25 mg tablet 25 mg PO DAILY 10/31/23 10/31/23 omega-3 fatty acids-fish oil 684 1 cap PO DAILY 10/31/23 10/31/23 mg-1,200 mg capsule,delayed release sertraline 25 mg tablet 25 mg PO DAILY 10/31/23 10/31/23 Previous Rx's Medication Instructions Recorded methylprednisolone 4 mg tablets in See Rx Instructions .Route 10/31/23 a dose pack (Medrol (Vu)) .COMPLEX 6 days #21 tabs Allergies Allergy/AdvReac Type Severity Reaction Status Date / Time codeine Allergy Intermediate Verified 04/13/20 10:11 Penicillins Allergy Intermediate Verified 04/13/20 10:11 tetracycline Allergy Intermediate Verified 04/13/20 10:11 cephalexin [From Keflex] Allergy Verified 10/31/23 10:13 Sulfa (Sulfonamide Allergy Verified 10/31/23 10:13 Antibiotics) Worker's Comp Is this a Worker's Comp case?: No [facility] Disclaimer: The information contained in this section may have been updated after the patient was seen, as this information can be updated by other users. Medical History (Updated 10/31/23 @ 10:35 by Malaika Vargas APRN) Anxiety History of gastroesophageal reflux (GERD) Diabetes mellitus, type 2 Hyperlipidemia Hypertension Surgical History (Updated 10/31/23 @ 10:14 by Divya Grimes RN) History of tubal ligation History of tonsillectomy History of hysterectomy History of cholecystectomy History of appendectomy Social History Smoking Status: Smoker, status unknown tobacco type: cigarettes packs per day: 1 second hand exposure: No alcohol intake: never current occupational status: other Travel in the last 8 weeks: None ROS Obtained: Yes All systems reviewed & no additional complaints except as documented and Yes Systems reviewed as appropriate & no additional complaints except as documented Constitutional Constitutional: Reports system reviewed and no additional complaints, except as documented and Reports as per HPI ENT Ears, Nose, Mouth, and Throat: Reports system reviewed and no additional complaints, except as documented and Reports as per HPI Cardiovascular Cardiovascular: Reports system reviewed and no additional complaints, except as documented and Reports as per HPI Respiratory Respiratory: Reports system reviewed and no additional complaints, except as documented and Reports as per HPI Gastrointestinal Gastrointestingal: Reports system reviewed and no additional complaints, except as documented and as per HPI Integumentary/Breasts Skin/Breast: Reports system reviewed and no additional complaints, except as documented, Reports as per HPI, Reports pruritus and Reports rash Physical Exam General General appearance: alert and in no apparent distress Respiratory Respiratory exam: Present normal lung sounds bilaterally; Absent respiratory distress or wheezes Cardiovascular Cardiovascular exam: Present regular rate, normal rhythm and normal heart sounds Abdominal Exam Abdominal exam: Present soft and normal bowel sounds; Absent distention or tenderness Neurological Exam Neurological exam: Present alert, oriented X3 and normal gait Skin Skin exam: Present rash (red, linear raised blister like rash appears like poison yanick) Medical Decision Making Arik Inquiry Pt receiving controlled substance: No Arik was queried for this patient: No Vital Signs: 10/31/23 10:05 Temperature 97.9 F Temperature Source Oral Pulse Rate [Left Brachial] 58 L Respiratory Rate 20 Blood Pressure [Left Arm] 107/41 L Blood Pressure Mean [Left Arm] 63 Blood Pressure Source [Left Arm] Automatic Cuff Blood Pressure Position [Left Arm] Sitting 02 Sat by Pulse Oximetry 100 Oxygen Delivery Method Room Air Medical Decision Narrative: Patient states that she has taken solumedrol and prednisone in the past without complications or reactions
[2023-10-31] MEDS: METHYLPREDNISOLONE SOD SUCC 125MG VIAL 125 MG IM (10:31)
[2023-10-31 10:54] VITALS: BP 107/41; PULSE 58; RESP 20; TEMP 36.6; O2SAT 100
== END 2023-10-31 10:55 | disposition home or self-care (01) ==
PROVIDERS: Emergency Provider Nurse Practitioner; PCP Internal Medicine Adolescent Medicine
DX: L23.7 Allergic contact dermatitis due to plants, except food (principal); W60.XXXA Contact with nonvenomous plant thorns and spines and sharp leaves, initial encounter
CPT/HCPCS: 96372; 99204; 99212; G0463; J2919

== ENCOUNTER 2024-03-24 16:55 | Emergency (ER) | payer MEDICARE, OTHER, SELFPAY ==
[2024-03-24 16:57] VITALS: BP 114/51; PULSE 63; RESP 18; TEMP 36.7; O2SAT 99; BMI 25.3
[2024-03-24 17:16] LABS: Coronavirus 19, PCR Not Detected (NotDetected); Influenza A, PCR Not Detected (NotDetected); Influenza B, PCR Not Detected (NotDetected)
--- NOTE | 2024-03-24 17:28 | XR_ITS ---
PROCEDURE INFORMATION: Exam: XR Chest Exam date and time: 03/24/2024 5:30 PM Age: 68 years old Clinical indication: Cough TECHNIQUE: Imaging protocol: Radiologic exam of the chest. Views: 2 views. COMPARISON: CT LUNG SCREENING 09/29/2023 6:58 AM FINDINGS: Lungs: No evidence of acute pulmonary disease or infiltrates Pleural spaces: No large effusion or pneumothorax. Heart/Mediastinum: Stable cardiac and mediastinal contours. Bones/joints: There is exaggeration of the spinal curvature. IMPRESSION: No dense parenchymal consolidation, pleural effusion, or pneumothorax.
[2024-03-24 17:30] VITALS: BP 100/55; PULSE 63; O2SAT 97
--- NOTE | 2024-03-24 17:34 | ED_ITS ---
Discharge Plan Disposition Patient Disposition: Home, Self-Care Condition: Good Prescriptions Prescriptions: New azithromycin 500 mg tablet 500 mg PO DAILY 3 Days Qty: 3 0RF Rx Instructions: start on day 2 of therapy cetirizine [Zyrtec] 10 mg tablet 10 mg PO DAILY Qty: 30 0RF [id number]-[id number] [Bromfed DM] 2-30-10 mg/5 mL syrup 5 ml PO Q6H PRN (Reason: cold symptoms) Qty: 118 0RF No Action atorvastatin 20 mg tablet 20 mg PO DAILY famotidine 20 mg tablet 20 mg PO DAILY sertraline 25 mg tablet 25 mg PO DAILY metoprolol tartrate 25 mg tablet 25 mg PO DAILY [place] 3 Fish Oil 684-1,200 mg Capsule,Delayed Release(Dr/Ec) 1 cap PO DAILY methylprednisolone [Medrol (Vu)] 4 mg tablets,dose pack See Rx Instructions .Route .COMPLEX 6 Days Qty: 21 0RF Rx Instructions: taper pack; Referrals Follow up/Referrals: Efrain Velarde MD [Primary Care Provider] - See instructions Activity Restrictions/Add. Instructions Additional Instructions/Restrictions: You were evaluated in the emergency department today. Please bulk picker your prescriptions and take them as prescribed. Also use the Flonase provided to you twice a day. Expect that your cough may linger for several weeks. Make sure to take Tylenol and ibuprofen as needed for pain or fever. Hydrate is much as possible. Return to the emergency department for new or worsening symptoms. Clinical Impressions Clinical Impression: Upper respiratory infection Instructions Patient Instructions: DI for Cough -- Adult, DI for Viral Upper Respiratory Infection -- Adult, DI for Acute Bronchitis Print Language Print Language: Tajik Discharge ED Provider: Zena Dawson General Adult HPI General Chief complaint: Upper Respiratory Infection Stated complaint: cough,congestion,fever Time Seen by Provider: 03/24/24 17:02 Mode of Arrival: Ambulatory Source of Information: Patient Limitations: No Limitations Description of Symptoms (Recalled from ER Triage Doc. by RN): pt presents to the er for nonproductive cough, runny nose, congestion, chills, sweating, decreased appetite, increased thirst, pain in her chest from coughing so hard since , states she went to the dr monday where she was dx with pneumonia and bronchitis, wasn't tested for anything and didn't receive any imaging, states was sick earlier last week and he was dx with pneumnia as well and not feeling well with similar symptoms, states she was put on amoxicillin last monday at History of Present Illness HPI narrative: This patient is a 68-year-old female with history of tobacco dependence, hypertension, hyperlipidemia, diabetes, GERD, and anxiety presenting to the emergency department for evaluation with concern for runny nose, cough, congestion, chills, diaphoresis, decreased appetite, body aches. She notes her at home is also sick. She states she went to her primary care provider on Monday where she was diagnosed with pneumonia and bronchitis. She notes they did not do any labs, imaging, or other testing and they sent her in amoxicillin, which she states that she has been taking but is getting no better. She is also try Delsym for cough but she states she feels like she is having a really hard time coughing things up that she needs to cough up. Though she smokes, she denies history of asthma or COPD. She notes usually she gets better with a steroid shot and a Rocephin shot. Related Data Home Medications ?Medication ?Instructions ?Recorded ?Confirmed atorvastatin 20 mg tablet 20 mg PO DAILY 10/31/23 10/31/23 famotidine 20 mg tablet 20 mg PO DAILY 10/31/23 10/31/23 metoprolol tartrate 25 mg tablet 25 mg PO DAILY 10/31/23 10/31/23 omega-3 fatty acids-fish oil 684 1 cap PO DAILY 10/31/23 10/31/23 mg-1,200 mg capsule,delayed release sertraline 25 mg tablet 25 mg PO DAILY 10/31/23 10/31/23 Previous Rx's ?Medication ?Instructions ?Recorded methylprednisolone 4 mg tablets in See Rx Instructions .Route 10/31/23 a dose pack (Medrol (Vu)) .COMPLEX 6 days #21 tabs azithromycin 500 mg tablet 500 mg PO DAILY 3 days #3 tabs 03/24/24 zhpjmnazeomlnxx-gvbpetknjgakhex-KO 5 ml PO Q6H PRN cold symptoms #118 03/24/24 2 mg-30 mg-10 mg/5 mL oral syrup mL (Bromfed DM) cetirizine 10 mg tablet (Zyrtec) 10 mg PO DAILY #30 tabs 03/24/24 Allergies Allergy/AdvReac Type Severity Reaction Status Date / Time codeine Allergy Intermediate Other Verified 03/24/24 17:14 Penicillins Allergy Intermediate Other Verified 03/24/24 17:14 tetracycline Allergy Intermediate Other Verified 03/24/24 17:14 cephalexin (From Keflex) Allergy Other Verified 03/24/24 17:14 Sulfa (Sulfonamide Allergy Other Verified 03/24/24 17:14 Antibiotics) [facility] Disclaimer: The information contained in this section may have been updated after the patient was seen, as this information can be updated by other users. Medical History Anxiety History of gastroesophageal reflux (GERD) Diabetes mellitus, type 2 Hyperlipidemia Hypertension Surgical History History of tubal ligation History of tonsillectomy History of hysterectomy History of cholecystectomy History of appendectomy Social History Smoking Status: Current every day smoker tobacco type: cigarettes packs per day: 1 second hand exposure: No alcohol intake: never current occupational status: other Travel in the last 8 weeks: None ROS Obtained: Yes All systems reviewed & no additional complaints except as documented Physical Exam General General appearance: alert and in no apparent distress Head Head exam: atraumatic and normocephalic Eye Eye exam: Present normal appearance, PERRL and EOMI ENT ENT exam: Present normal oropharynx, mucous membranes moist, normal external ear exam and other (Serous effusion behind the right ear. No otitis media. Nasal congestion. Harsh, hacking cough) Neck Neck exam: Present normal inspection, full ROM and trachea midline; Absent tenderness Chest Chest inspection: Present normal inspection and symmetric chest wall rise; Absent tenderness Respiratory Respiratory exam: Present normal lung sounds bilaterally; Absent respiratory distress, wheezes, stridor, accessory muscle use or prolonged expiratory phase Cardiovascular Cardiovascular exam: Present regular rate and normal rhythm Abdominal Exam Abdominal exam: Present soft; Absent distention, tenderness or guarding Extremities Exam Extremities exam: Present normal inspection, full ROM and normal capillary refill; Absent tenderness or edema Back Exam Back exam: Present normal inspection and full ROM; Absent tenderness Neurological Exam Neurological exam: Present alert, oriented X3, CN II-XII intact and normal gait; Absent motor sensory deficit Psychiatric Psychiatric exam: Present normal affect and normal mood Skin Skin exam: Present warm and dry Medical Decision Making Medical Records Medical records reviewed: Yes I reviewed the patient's medical records. Screening: Per USPSTF and CDC recommendations, given the prevalence of disease in our region, it is our hospital?s policy to screen for HIV and viral Hepatitis for all patients aged 18 and over and those with ongoing risk factors. Arik Inquiry Pt receiving controlled substance: No Vital Signs: 03/24/24 16:57 03/24/24 17:30 03/24/24 18:01 Temperature 98.0 F Temperature Source Oral Pulse Rate 63 57 L Pulse Rate [Left Radial] 63 Respiratory Rate 18 Blood Pressure 100/55 L 120/68 Blood Pressure [Right Arm] 114/51 L Blood Pressure Mean [Right Arm] 72 Blood Pressure Source Blood Pressure Source [Right Arm] Automatic Cuff Blood Pressure Position Blood Pressure Position [Right Arm] Sitting 02 Sat by Pulse Oximetry 99 97 97 Oxygen Delivery Method Room Air Room Air Room Air 03/24/24 18:31 03/24/24 18:49 Temperature 98.1 F Temperature Source Oral Pulse Rate 56 L 61 Pulse Rate [Left Radial] Respiratory Rate 18 Blood Pressure 117/62 121/67 Blood Pressure [Right Arm] Blood Pressure Mean [Right Arm] Blood Pressure Source Automatic Cuff Blood Pressure Source [Right Arm] Blood Pressure Position Sitting Blood Pressure Position [Right Arm] 02 Sat by Pulse Oximetry 97 Oxygen Delivery Method Room Air Room Air Lab Data Lab results reviewed: Yes I reviewed the patient's lab results. Lab Results 03/24/24 17:11: SARS-CoV-2 (PCR) Not detected, Influenza A Untype (PCR) Not detected, Influenza Type B (PCR) Not detected Orders (Tests/Meds): ED MEDICATIONS Discontinued Medications Generic Name Dose Route Start Last Admin Trade Name Freq PRN Reason Stop Dose Admin Azithromycin 500 mg 03/24/24 17:28 03/24/24 17:39 Azithromycin 250mg Tablet PO 03/24/24 17:29 500 mg ONCE ONE Administration Dexamethasone Sodium Phosphate 10 mg 03/24/24 17:28 03/24/24 17:38 Dexamethasone 4mg/Ml 1ml Vial IV 03/24/24 17:29 10 mg ONCE ONE Administration Fluticasone Propionate 1 spray 03/24/24 17:29 03/24/24 17:39 Fluticasone Prop 50mcg Nasal [place] 16gm NS 03/24/24 17:30 1 spray ONCE ONE Administration Loratadine 10 mg 03/24/24 17:29 03/24/24 17:39 Loratadine 10mg Tablet PO 03/24/24 17:30 10 mg ONCE ONE Administration Ondansetron HCl 4 mg 03/24/24 17:32 03/24/24 17:39 Ondansetron 4mg Odt SL 03/24/24 17:33 4 mg ONCE ONE Administration ORDERS Category Date Time Status CXR 2 view (NOT portable) [XR chest 2V] Stat Exams 03/24/24 17:28 Completed Rapid PCR Covid and Flu A/B Stat Lab 03/24/24 17:11 Completed Medical Decision Narrative: In summary, this patient is a 68-year-old female presenting to the Emergency Department for evaluation of cough, congestion, runny nose, body aches, generally feeling unwell. at home is also sick. Differential diagnoses considered include but are not limited to viral syndrome, pneumonia, COPD, asthma, respiratory failure. Ruling out the most morbid conditions drove assessment. It should be noted patient's history includes smoking, hypertension, hyperlipidemia, diabetes, GERD which may or may not be at goal therapy. This complicates all aspects of care by increasing patient's risk for morbidity. On exam, the patient is sitting upright in no acute distress with normal vital signs on cardiac telemetry. Cardiopulmonary exam is reassuring with no increased work of breathing and no significant adventitious lung sounds. She has bilateral serous effusions. She is a smoker but denies any known history of COPD, however she states she typically is treated with inhalers, steroids, and antibiotics when she gets sick. She is already on amoxicillin and has an inhaler. I favor viral infection given that her is also sick. Workup included COVID/flu swab as well as two-view chest x-ray. 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 I independently interpreted x-ray prior to the radiologist read and noted no obvious large focal consolidation but she may have some patchy perihilar faint consolidations. Please see their read for final interpretation. On reassessment, the patient is resting comfortably. I have provided her with Flonase to help with serous effusions and postnasal drip. Given extensive smoking history, decision to treat with IM dexamethasone, oral azithromycin was made. I also provided her with oral antihistamine and Bromfed to have as needed for cough. She was given instructions for expectant management and strict return precautions. Given reassuring exam, normal vitals, it is felt she is appropriate for discharge home with prescriptions as above and instructions for supportive management. Strict return precautions were given. Critical Care Critical Care Time Critical Care Time: No
[2024-03-24] MEDS: DEXAMETHASONE 4MG/ML 1ML VIAL 10 MG IV (17:38)
[2024-03-24] MEDS: AZITHROMYCIN 250MG TABLET 500 MG PO (17:39)
[2024-03-24] MEDS: LORATADINE 10MG TABLET 10 MG PO (17:39)
[2024-03-24] MEDS: FLUTICASONE PROP 50MCG NASAL SPRAY 16GM 1 SPRAY NS (17:39)
[2024-03-24] MEDS: ONDANSETRON 4MG ODT 4 MG SL (17:39)
[2024-03-24 18:01] VITALS: BP 120/68; PULSE 57; O2SAT 97
[2024-03-24 18:31] VITALS: BP 117/62; PULSE 56; O2SAT 97
[2024-03-24 18:49] VITALS: BP 121/67; PULSE 61; RESP 18; TEMP 36.7; O2SAT 98
== END 2024-03-24 18:50 | disposition home or self-care (01) ==
PROVIDERS: Emergency Provider Emergency Medicine; PCP Internal Medicine Adolescent Medicine
DX: J06.9 Acute upper respiratory infection, unspecified (principal); R05.8 Other specified cough; R09.89 Other specified symptoms and signs involving the circulatory and respiratory systems; R09.81 Nasal congestion; R68.83 Chills (without fever); R63.8 Other symptoms and signs concerning food and fluid intake; R07.89 Other chest pain; R63.1 Polydipsia; R61 Generalized hyperhidrosis; Z72.0 Tobacco use
CPT/HCPCS: 71046; 87636; 96374; 99283; J1100; Q0162

== ENCOUNTER 2024-04-03 10:42 | Emergency (ER) | payer MEDICARE, OTHER, SELFPAY ==
--- NOTE | 2024-04-03 10:45 | XR_ITS ---
FINAL REPORT CLINICAL HISTORY: pain COMPARISON: None FINDINGS: RIGHT WRIST Three views show no evidence of an acute, displaced fracture or dislocation of the visualized bony architecture. Mild degenerative changes are noted. There is no acute process. There is a small accessory ossicle along the distal ulna. IMPRESSION: Mild degenerative changes. Reviewed, Interpreted and Dictated by Yoon Marquez MD Transcribed by Lalita Laird Authenticated and [facility]
--- NOTE | 2024-04-03 10:45 | XR_ITS ---
FINAL REPORT CLINICAL HISTORY: pain COMPARISON: None FINDINGS: RIGHT HAND Three views show no evidence of acute displaced fracture or dislocation of the visualized bony architecture. There are mild degenerative changes of the DIP and PIP joints. There are moderate degenerative changes of the first CMC joint. Changes of osteopenia are noted. IMPRESSION: Arthritic changes without fracture. Reviewed, Interpreted and Dictated by Yoon Marquez MD Transcribed by Lalita Laird Authenticated and [facility]
--- NOTE | 2024-04-03 11:38 | ED_ITS ---
Discharge Plan Disposition Patient Disposition: Home, Self-Care Condition: Good Prescriptions Prescriptions: No Action azithromycin 500 mg tablet 500 mg PO DAILY 3 Days Qty: 3 0RF Rx Instructions: start on day 2 of therapy cetirizine [Zyrtec] 10 mg tablet 10 mg PO DAILY Qty: 30 0RF dudtlhplvdrzlbv-rxcbxfrpi-QQ [Bromfed DM] 2-30-10 mg/5 mL syrup 5 ml PO Q6H PRN (Reason: cold symptoms) Qty: 118 0RF atorvastatin 20 mg tablet 20 mg PO DAILY famotidine 20 mg tablet 20 mg PO DAILY sertraline 25 mg tablet 25 mg PO DAILY metoprolol tartrate 25 mg tablet 25 mg PO DAILY [place] 3 Fish Oil 684-1,200 mg Capsule,Delayed Release(Dr/Ec) 1 cap PO DAILY methylprednisolone [Medrol (Vu)] 4 mg tablets,dose pack See Rx Instructions .Route .COMPLEX 6 Days Qty: 21 0RF Rx Instructions: taper pack; Referrals Follow up/Referrals: Jean Carlos Chambers DO [Staff Physician] - See instructions Efrain Velarde MD [Primary Care Provider] - See instructions Activity Restrictions/Add. Instructions Additional Instructions/Restrictions: Rest the extremity, apply ice for 15 minutes as tolerated three or four times per day, Elevate the extremity as tolerated while you are resting. Take tylenol for pain. Follow up with Dr. Chambers (orthopedics). I put in a referral but you need to call his office and schedule an appointment. Follow up with your regular doctor. GO TO THE ER FOR ANY WORSENING SYMPTOMS Clinical Impressions Clinical Impression: Right wrist sprain, Sprain of hand, right Instructions Patient Instructions: Wrist Sprain, DI for Wrist Sprain Print Language Print Language: Cambodian Discharge ED Provider: Wolf Hernandez [facility] General Stated complaint: AO-03/31 Time Seen by Provider: 04/03/24 11:38 Related Data Home Medications ?Medication ?Instructions ?Recorded ?Confirmed atorvastatin 20 mg tablet 20 mg PO DAILY 10/31/23 10/31/23 famotidine 20 mg tablet 20 mg PO DAILY 10/31/23 10/31/23 metoprolol tartrate 25 mg tablet 25 mg PO DAILY 10/31/23 10/31/23 omega-3 fatty acids-fish oil 684 1 cap PO DAILY 10/31/23 10/31/23 mg-1,200 mg capsule,delayed release sertraline 25 mg tablet 25 mg PO DAILY 10/31/23 10/31/23 Previous Rx's ?Medication ?Instructions ?Recorded methylprednisolone 4 mg tablets in See Rx Instructions .Route 10/31/23 a dose pack (Medrol (Vu)) .COMPLEX 6 days #21 tabs azithromycin 500 mg tablet 500 mg PO DAILY 3 days #3 tabs 03/24/24 pzljjtzhzpqnycv-fkxjslibslrrrwf-ZT 5 ml PO Q6H PRN cold symptoms #118 03/24/24 2 mg-30 mg-10 mg/5 mL oral syrup mL (Bromfed DM) cetirizine 10 mg tablet (Zyrtec) 10 mg PO DAILY #30 tabs 03/24/24 Allergies Allergy/AdvReac Type Severity Reaction Status Date / Time codeine Allergy Intermediate Other Verified 03/24/24 17:14 Penicillins Allergy Intermediate Other Verified 03/24/24 17:14 tetracycline Allergy Intermediate Other Verified 03/24/24 17:14 cephalexin (From Keflex) Allergy Other Verified 03/24/24 17:14 Sulfa (Sulfonamide Allergy Other Verified 03/24/24 17:14 Antibiotics) [facility] Disclaimer: The information contained in this section may have been updated after the patient was seen, as this information can be updated by other users. Medical History Anxiety History of gastroesophageal reflux (GERD) Diabetes mellitus, type 2 Hyperlipidemia Hypertension Surgical History History of tubal ligation History of tonsillectomy History of hysterectomy History of cholecystectomy History of appendectomy Social History Smoking Status: Current every day smoker tobacco type: cigarettes packs per day: 1 second hand exposure: No alcohol intake: never current occupational status: other Travel in the last 8 weeks: None Have you lived/traveled outside [place] in past 30 days?: No Contact w/someone who lives/traveled outside [place] past 30 days?: No Exposure to someone with infectious disease in past 14 days?: No Do you have a fever (greater than 100.4 F or 38 C)?: No Have you tested positive for COVID-19: No Exposed to someone with COVID-19 in past 14 days?: No Do you have a sore throat?: No Do you have a cough?: No Do you have any weakness?: No Do you have any diarrhea?: No Are you experiencing any unusual bleeding?: No Do you have any muscle aches/pain?: No Do you have any abdominal pain?: No Are you experiencing loss of taste or smell?: No ROS Obtained: Yes All systems reviewed & no additional complaints except as documented Constitutional Constitutional: Denies chills and Denies fever(s) Eyes Eyes: Denies eye discharge ENT Ears, Nose, Mouth, and Throat: Denies dizziness, Denies otalgia and Denies sore throat Cardiovascular Cardiovascular: Denies chest pain Respiratory Respiratory: Denies shortness of breath, Denies chest congestion, Denies cough, Denies stridor and Denies wheezing Gastrointestinal Gastrointestingal: Denies nausea or vomiting Musculoskeletal Musculoskeletal: Reports system reviewed and no additional complaints, except as documented and Denies arthralgias Integumentary/Breasts Skin/Breast: Denies rash Neurologic Neurologic: Denies dizziness and Denies paresthesias Allergic/Immunologic Allergic/Immunologic: Denies wheezing Physical Exam General General appearance: alert and in no apparent distress Head Head exam: atraumatic, normocephalic and normal inspection Eye Eye exam: Present normal appearance, PERRL and EOMI ENT ENT exam: Present normal exam, normal oropharynx, mucous membranes moist, TM's normal bilaterally and normal external ear exam Neck Neck exam: Present normal inspection, full ROM and trachea midline; Absent meningismus or lymphadenopathy Chest Chest inspection: Present normal inspection and symmetric chest wall rise; Absent tenderness Respiratory Respiratory exam: Present normal lung sounds bilaterally; Absent respiratory distress Cardiovascular Cardiovascular exam: Present regular rate and normal rhythm; Absent JVD Abdominal Exam Abdominal exam: Present soft and normal bowel sounds; Absent distention, tenderness or guarding Extremities Exam Extremities exam: Present normal inspection, full ROM and normal capillary refill; Absent calf tenderness Back Exam Back exam: Present normal inspection; Absent tenderness Neurological Exam Neurological exam: Present alert and oriented X3 Psychiatric Psychiatric exam: Present normal affect and normal mood Skin Skin exam: Present warm, dry, intact and normal color Lymphatic Lymphatic Findings: no adenopathy Medical Decision Making Medical Records Medical records reviewed: No I reviewed the patient's medical records. Screening: Per USPSTF and CDC recommendations, given the prevalence of disease in our region, it is our hospital?s policy to screen for HIV and viral Hepatitis for all patients aged 18 and over and those with ongoing risk factors. [place] Inquiry Pt receiving controlled substance: No Orders (Tests/Meds): ORDERS Category Date Time Status Wrist XR right minimum 3 views [XR wrist RT min 3V] Exams 04/03/24 10:45 Completed Stat XR hand RT min 3V Stat Exams 04/03/24 10:45 Completed Radiology Data #1: Image(s): Hand Image Reviewed: Yes I reviewed the patient's radiology image and Yes I have reviewed radiologist's interpretation Preliminary Findings: No Fracture Seen Accession No. : [id number] Patient Name / ID : BRYANNA Shea / [id number] Exam Date : 04/03/2024 10:55:02 ( Final ) Study Comment : Sex / Age : F / 68Y Creator : Scott Marquez MD Dictator : [employer] Sales Associate : Inweaver : Scott Marquez MD Approver2 : Report Date : 04/03/2024 11:28:26 My Comment : FINAL REPORT CLINICAL HISTORY: pain COMPARISON: None FINDINGS: RIGHT HAND Three views show no evidence of acute displaced fracture or dislocation of the visualized bony architecture. There are mild degenerative changes of the DIP and PIP joints. There are moderate degenerative changes of the first CMC joint. Changes of osteopenia are noted. IMPRESSION: Arthritic changes without fracture. Reviewed, Interpreted and Dictated by Yoon Marquez MD Transcribed by Lalita Laird Authenticated and [facility]: Image(s): Wrist Image Reviewed: Yes I reviewed the patient's radiology image and Yes I have reviewed radiologist's interpretation Preliminary Findings: No Fracture Seen Accession No. : [id number] Patient Name / ID : BRYANNA COLLADO E / [id number] Exam Date : 04/03/2024 10:53:14 ( Final ) Study Comment : Sex / Age : F / 68Y Creator : Scott Marquez MD Dictator : [employer] Sales Associate : Inweaver : Scott Marquez MD Approver2 : Report Date : 04/03/2024 11:30:56 My Comment : FINAL REPORT CLINICAL HISTORY: pain COMPARISON: None FINDINGS: RIGHT WRIST Three views show no evidence of an acute, displaced fracture or dislocation of the visualized bony architecture. Mild degenerative changes are noted. There is no acute process. There is a small accessory ossicle along the distal ulna. IMPRESSION: Mild degenerative changes. Reviewed, Interpreted and Dictated by Yoon Marquez MD Transcribed by Lalita Laird Authenticated and [facility] Procedures Risk/Benefits of Procedure(s) Were Explained: Yes Orthopedic Splinting/Casting Injury #1: Side: right Upper Extremity Injury Location: wrist and hand Upper Extremity Immobilizer: volar splint and applied by nurse/dr kinsey Post Cast/Splinting Neuro Status: intact and no change Post Cast/Splinting Vasc Status: intact and no change
[2024-04-03 11:40] VITALS: BP 122/56; PULSE 58; RESP 20; TEMP 36.6; O2SAT 99; BMI 25.3
[2024-04-03 12:01] VITALS: BP 122/56; PULSE 58; RESP 20; TEMP 36.6
== END 2024-04-03 12:02 | disposition home or self-care (01) ==
PROVIDERS: Emergency Provider Nurse Practitioner Family; PCP Internal Medicine Adolescent Medicine
DX: S63.501A Unspecified sprain of right wrist, initial encounter (principal); X58.XXXA Exposure to other specified factors, initial encounter
CPT/HCPCS: 29125; 73110; 73130; 99214; G0382